=== PATIENT | female | born 1990 | race Caucasian/White ===

== ENCOUNTER 2018-11-08 08:37 | Emergency (ER) | payer MEDICAID ==
[~2018-11-08] VITALS: Ht 154.9 cm; Wt 53.0 kg
--- NOTE | 2018-11-08 08:56 | NUR ---
Pt arrived in front [facility] with SOB. Pt was called as a code 250 and brought straight back. Pt has audible inspiratory wheezes, in obvious distress, states she has a history of asthma and is out of her inhaler. Placed on 2L O2, vitals stable. EKG performed. Pt attached to BP and Pulse Ox, dressed in gown, and awaiting ERP evaluation. Pt denies any further needs or concerns at this time.
--- NOTE | 2018-11-08 09:06 | NUR ---
PT TAKEN TO RADIOLOGY
[2018-11-08] MEDS ORDERED: ALBUTEROL SULFATE 2.5 MG/3 ML ONE (09:07)
--- NOTE | 2018-11-08 09:10 | NUR ---
rt at bedside. pt back from [facility].
[2018-11-08] MEDS ORDERED: ALBUTEROL SULFATE 2.5 MG/3 ML NPPB ONE (09:30)
[2018-11-08] MEDS ORDERED: SODIUM CHLORIDE FLUSH 10ML SYR IVF ONE (09:30)
[2018-11-08 09:40] VITALS: BP 101/60
--- NOTE | 2018-11-08 10:20 | NUR ---
unable to start iv-iv attempt x5 and unsuccessful. no ej access. aware.
--- NOTE | 2018-11-08 10:27 | NUR ---
pt will have non contrast ct per md .
--- NOTE | 2018-11-08 11:02 | NUR ---
PT BACK FROM CT SCAN 96% RA
== END 2018-11-08 11:50 | disposition home or self-care (01) ==
LOC: ED 10:29
DX: J98.2 Interstitial emphysema (principal); J45.41 Moderate persistent asthma with (acute) exacerbation
CPT/HCPCS: 71046; 71250; 93005; 94640; 99284; J7512; J7613